=== PATIENT | male | born 1955 | race Caucasian/White ===

== ENCOUNTER 2018-12-03 07:47 | Day surgery (SDC) | payer OTHER ==
[~2018-12-03] VITALS: Ht 167.6 cm; Wt 103.8 kg
[~2018-12-03 07:47] MED LIST: ASPI-535 PO; MTF1000T PO; PRAV10TA43 PO
[2018-12-03 09:11] VITALS: Ht 167.6 cm; Wt 103.8 kg
[2018-12-03] MEDS ORDERED: VITAMIN D (09:17)
[2018-12-03 10:11] VITALS: BP 113/70; PULSE 55; RESP 20
--- NOTE | 2018-12-03 10:17 | PREAC ---
Date/Time of Note Date/Time of Note DATE: 12/03/18 TIME: 10:15 Anesthesia Eval and Record Evaluation Time Pre-Procedure Interview DATE: 12/03/18 TIME: 10:15 Age 63 Sex male NPO: 8 hrs Preoperative diagnosis COLON POLYPS, [facility] Planned procedure COLONOSCOPY Past Medical History Past Medical History: Includes Cardio: Dyslipidemia Endo: Diabetes GI: Obesity Surgery & Anesthesia Issues No known issue Meds Anticoagulation: No Beta Zina within 24 hr: No Reason Beta Zina not given: Pt. not on B-Zina Reported Medications [Vitamin D ] No Conflict Check 12/03/18 Aspirin Ec (Aspir 81) 81 Mg Tablet.dr, 81 MG PO DAILY, #30 TAB 08/30/15 Pravastatin Sodium* (Pravastatin Sodium*) 10 Mg Tablet, 10 MG PO HS, TAB 08/30/15 Metformin* (Glucophage*) 1,000 Mg Tablet, 1000 PO BID, #60 TAB 08/30/15 Meds reviewed: Yes Allergies Coded Allergies: No Known Drug Allergies (Unverified Allergy, Unknown, 12/03/18) Allergies Reviewed: Yes Labs/Studies Labs Reviewed: Reviewed by anesthesiologist test: N/A Pre-procedure Exam Last vitals Vital Signs Date Temp Pulse Resp B/P (MAP) Pulse Ox O2 O2 Flow FiO2 Time Delivery Rate 12/03/18 97.6 55 20 113/70 95 Room Air 10:11 (84) Airway: Adequate mouth opening, Adequate thyromental dist Mallampati: Mallampati II Teeth: Normal Lung: Normal Heart: Normal ASA Physical Status ASA physical status: 2 Emergency: None Planned Anesthetic General/MAC: MAC Planned Pain Management Parenteral pain med Pre-operative Attestations Prior to commencing anesthesia and surgery, the patient was re-evaluated, there was verification of: *The patient's identity *The results of appropriate recent lab work and preoperative vital signs *The above evaluation not changing prior to induction *Anesthetic plan, risk benefits, alternative and complications discussed with patient/family; questions answered; patient/family understands, accepts and wishes to proceed. ALBERTINA BUTLER Dec 03, 2018 10:17
[2018-12-03] MEDS ORDERED: PROPOFOL 60 ML ONE (10:21)
[2018-12-03] MEDS ORDERED: LIDOCAINE 2% (SDV) 5 ML INJ ONE (10:21)
[2018-12-03] MEDS ORDERED: ONDANSETRON 4 MG INJ IV PRN (10:30)
[2018-12-03] MEDS ORDERED: EPHEDrine SULFATE 50 MG/5 ML SYG IV PRN (10:30)
[2018-12-03] MEDS ORDERED: hydrALAzine 20 MG INJ IV PRN (10:30)
[2018-12-03] MEDS ORDERED: FENTAnyl 50 MCG/ML VIAL IV PRN (10:30)
[2018-12-03] MEDS ORDERED: LABETALOL HCL 20MG INJ IV PRN (10:30)
[2018-12-03] MEDS ORDERED: ALBUTEROL 0.083% (NEB) 2.5 MG/3 ML AMP HHN PRN (10:30)
--- NOTE | 2018-12-03 11:10 | PAC ---
Date/Time of Note Date/Time of Note DATE: 12/03/18 TIME: 11:10 Post-Anesthesia Notes Post-Anesthesia Note Last documented vital signs Vital Signs Date Temp Pulse Resp B/P (MAP) Pulse Ox O2 O2 Flow FiO2 Time Delivery Rate 12/03/18 97.6 55 20 113/70 95 Room Air 1110 (84) Activity: WNL Respiratory function: WNL Cardiovascular function: WNL Mental status: Baseline Pain reasonably controlled: Yes Hydration appropriate: Yes Nausea/Vomiting absent: Yes ALBERTINA BUTLER Dec 03, 2018 11:10
[2018-12-03 11:30] VITALS: BP 112/74; PULSE 63; RESP 16
== END 2018-12-03 12:24 | disposition home or self-care (01) ==
LOC: GIL 07:47
PROVIDERS: ATTEND Internal Medicine Gastroenterology
DX: R19.4 Change in bowel habit (principal); K64.8 Other hemorrhoids; D12.5 Benign neoplasm of sigmoid colon; E11.9 Type 2 diabetes mellitus without complications; Z79.82 Long term (current) use of aspirin; Z79.84 Long term (current) use of oral hypoglycemic drugs
CPT/HCPCS: 45385; 88305; Z7610